=== PATIENT | female | born 1930 | race Caucasian/White ===

== ENCOUNTER 2018-01-08 18:15 | Inpatient (IN) | payer OTHER, BC ==
[~2018-01-08] VITALS: Ht 172.7 cm; Wt 75.0 kg
[~2018-01-08 18:15] MED LIST: ACCUPRIL40 MG PO; CALCIUM 500 +1 EACH PO; DIOVAN320 MG PO; ECOTRIN325 MG PO; EVISTA60 MG PO; GLUCOTROL10 MG PO; HYDRODIURIL,ORE25 MG PO; K-DUR20 MEQ PO; LANTUS100 UNIT/1 SQ; LOPRESSOR50 MG PO; NORVASC2.5 MG PO; PRILOSEC20 MG PO
[2018-01-08 18:30] LABS: BASOPHIL (%) 0.7 % (0-1); BASOPHIL COUNT 0.1 K/uL (0-0.1); EOSINOPHIL (%) 0.8 % (0-5); EOSINOPHIL COUNT 0.1 K/uL (0-0.3); HEMATOCRIT 44.8 % (36.0-46.0); HEMOGLOBIN 15.5 G/DL (11.9-15.5); IMMATURE GRANULOCYTE (%) 0.4 % (0.0-0.7); LYMPHOCYTE (%) 32.3 % (15-42); MCH 31.2 PG (29.0-34.0); MCHC 34.6 G/DL (30.0-36.0); MCV 90.1 FL (83-99); MONOCYTE (%) 8.4 % (3-12); NEUTROPHIL (%) 57.4 % (45-76); NEUTROPHIL COUNT 7.1 K/uL (1.8-6.4); PLATELET COUNT 263 K/uL (156-360); RBC DIS.WIDTH-CV 12.6 % (11.8-14.6); RBC DIS.WIDTH-SD 41.9 % (39-53); RED BLOOD COUNT 4.97 M/uL (3.80-5.20); WHITE BLOOD COUNT 12.3 K/uL (4.1-10.2)
[2018-01-08 18:36] LABS: INTER. NORMALIZED RATIO 0.9
[2018-01-08 18:39] LABS: PTT 28.3 SEC (25-37)
[2018-01-08 18:41] LABS: AMYLASE 49 IU/L (1-118)
[2018-01-08 18:42] LABS: CHLORIDE 101 mEq/L (99-109); POTASSIUM 3.6 mEq/L (3.7-5.4); SODIUM 137 mEq/L (136-147)
[2018-01-08 18:43] LABS: GLUCOSE 74 mg/dL (70-99)
[2018-01-08 18:46] LABS: SERUM ETHYL ALCOHOL < 10 mg/dL
[2018-01-08 18:47] LABS: CREATININE 0.7 mg/dL (0.6-1.3); GFR ESTIMATE (CALCULATED) > 59 mL/min/
[2018-01-08 18:48] LABS: UREA NITROGEN (BUN) 13 mg/dL (9-23)
[2018-01-08 18:50] LABS: LIPASE 17 U/L (1.0-51.0)
[2018-01-08 18:52] LABS: TROP-I INTERPRETATION NEGATIVE; TROPONIN-I < 0.01 ng/mL (0.0-0.30)
[2018-01-08 21:18] LABS: APPEARANCE SL.HAZY ((CLEAR)); BILIRUBIN NEGATIVE; BLOOD NEGATIVE; COLOR YELLOW ((YELLOW)); GLUCOSE (STRIP) 150; KETONES NEGATIVE; LEUKOCYTES SMALL; NITRITE NEGATIVE; PROTEIN (STRIP) NEGATIVE; SPECIFIC GRAVITY 1.011 (1.000-1.030); UROBILINOGEN 0.2 MG/DL (0.2-1.0)
[2018-01-08 21:20] LABS: BACTERIA 1+ /HPF; EPITHELIAL CELLS RARE /HPF; MUCUS TRACE /LPF; RED BLOOD CELLS 0-5 /HPF (0-5); UCUL ADDED? YES
[2018-01-08] MEDS ORDERED: HYDROCHLOROTHIA25 MG PO (21:24)
[2018-01-08] MEDS ORDERED: LANTUS 10100 UNITS/ SC (21:25)
[2018-01-08 21:26] LABS: AMPHETAMINE NEGATIVE (500 ng/mL); BARBITURATES NEGATIVE (200 ng/mL); BENZODIAZEPINES NEGATIVE (150 ng/mL); BUPRENORPHINE NEGATIVE (10 ng/mL); COCAINE NEGATIVE (150 ng/mL); METHADONE NEGATIVE (200 ng/mL); METHAMPHETAMINE NEGATIVE (500 ng/mL); OPIATES (MORPHINE) NEGATIVE (100 ng/mL); OXYCODONE NEGATIVE (100 ng/mL); PHENCYCLIDINE NEGATIVE (25 ng/mL); PROPOXYPHENE NEGATIVE (300 ng/mL); THC CANNABINOIDS NEGATIVE (50 ng/mL); TRICYCLIC ANTIDEPRESSANTS NEGATIVE (300 ng/mL)
[2018-01-08] MEDS ORDERED: CARTIA XT180 MG PO (21:28)
[2018-01-08] MEDS ORDERED: ATORVASTATIN CA20 MG PO (21:29)
[2018-01-08] MEDS ORDERED: LISINOPRIL40 MG PO (21:29)
[2018-01-08 22:09] LABS: HDL CHOLESTEROL 30 MG/DL (Desirable>=50); NON-HDL CHOLESTEROL 143 mg/dL (Desirable<160); TOTAL CHOLESTEROL 173 mg/dL (Desirable<200); TRIGLYCERIDES 406 MG/DL (Normal: <150)
[2018-01-09] VITALS (8 sets, daily range): BP systolic 135–199; BP diastolic 63–94
[2018-01-09 06:13] LABS: BASOPHIL (%) 0.4 % (0-1); BASOPHIL COUNT 0.1 K/uL (0-0.1); EOSINOPHIL (%) 0.4 % (0-5); EOSINOPHIL COUNT 0.1 K/uL (0-0.3); HEMATOCRIT 42.3 % (36.0-46.0); HEMOGLOBIN 14.7 G/DL (11.9-15.5); IMMATURE GRANULOCYTE (%) 0.3 % (0.0-0.7); LYMPHOCYTE COUNT 4.1 K/uL (1.0-2.8); MCH 31.1 PG (29.0-34.0); MCHC 34.8 G/DL (30.0-36.0); MCV 89.6 FL (83-99); MONOCYTE (%) 8.3 % (3-12); MONOCYTE COUNT 1.2 K/uL (0-0.8); NEUTROPHIL (%) 61.6 % (45-76); NEUTROPHIL COUNT 8.7 K/uL (1.8-6.4); PLATELET COUNT 228 K/uL (156-360); RBC DIS.WIDTH-CV 12.6 % (11.8-14.6); RBC DIS.WIDTH-SD 41.4 % (39-53); RED BLOOD COUNT 4.72 M/uL (3.80-5.20); WHITE BLOOD COUNT 14.1 K/uL (4.1-10.2)
[2018-01-09 06:31] LABS: CHLORIDE 101 MEQ/L (99-109); CREATININE 0.6 MG/DL (0.6-1.3); GFR ESTIMATE (CALCULATED) > 59 mL/min/; POTASSIUM 3.5 MEQ/L (3.7-5.4); SODIUM 135 MEQ/L (136-147); UREA NITROGEN (BUN) 12 mg/dL (9-23)
[2018-01-09 06:36] LABS: GLUCOSE 155 mg/dL (70-99)
[2018-01-10 06:18] LABS: BASOPHIL (%) 0.5 % (0-1); BASOPHIL COUNT 0.1 K/uL (0-0.1); EOSINOPHIL (%) 0.9 % (0-5); EOSINOPHIL COUNT 0.1 K/uL (0-0.3); HEMATOCRIT 42.9 % (36.0-46.0); HEMOGLOBIN 14.9 G/DL (11.9-15.5); IMMATURE GRANULOCYTE (%) 0.3 % (0.0-0.7); LYMPHOCYTE COUNT 4.2 K/uL (1.0-2.8); MCH 31.5 PG (29.0-34.0); MCHC 34.7 G/DL (30.0-36.0); MCV 90.7 FL (83-99); MONOCYTE (%) 9.6 % (3-12); MONOCYTE COUNT 1.1 K/uL (0-0.8); NEUTROPHIL (%) 52.7 % (45-76); NEUTROPHIL COUNT 6.1 K/uL (1.8-6.4); PLATELET COUNT 224 K/uL (156-360); RBC DIS.WIDTH-CV 12.9 % (11.8-14.6); RBC DIS.WIDTH-SD 42.6 % (39-53); RED BLOOD COUNT 4.73 M/uL (3.80-5.20); WHITE BLOOD COUNT 11.5 K/uL (4.1-10.2)
[2018-01-10 06:43] LABS: CHLORIDE 102 MEQ/L (99-109); CREATININE 0.8 MG/DL (0.6-1.3); GFR ESTIMATE (CALCULATED) > 59 mL/min/; GLUCOSE 179 mg/dL (70-99); SODIUM 136 MEQ/L (136-147); UREA NITROGEN (BUN) 19 mg/dL (9-23)
[2018-01-10 08:01] VITALS: BP 193/91
[2018-01-10 11:09] LABS: HEMOGLOBIN A1c (GLYCOHEMOGLOB) 7.9 % (Below 5.7)
[2018-01-10 11:34] VITALS: BP 140/70
[2018-01-10] MEDS ORDERED: LOPRESSOR25 MG PO (14:12)
[2018-01-10] MEDS ORDERED: CEFTIN250 MG PO (14:20)
== END 2018-01-10 16:04 | disposition home health service (06) | DRG 948 ==
LOC: EME 18:15 → EDOF 20:28 → ENRESERV 20:30 → 5WEST 21:39
PROVIDERS: Emergency Medicine; Hospitalist; Internal Medicine
DX: R41.82 Altered mental status, unspecified (principal); E11.649 Type 2 diabetes mellitus with hypoglycemia without coma; R27.0 Ataxia, unspecified; R47.1 Dysarthria and anarthria; N39.0 Urinary tract infection, site not specified; E86.0 Dehydration; E87.6 Hypokalemia; R00.1 Bradycardia, unspecified; T46.1X5A Adverse effect of calcium-channel blockers, initial encounter; I16.1 Hypertensive emergency; I10 Essential (primary) hypertension; K21.9 Gastro-esophageal reflux disease without esophagitis; E78.5 Hyperlipidemia, unspecified; I25.10 Atherosclerotic heart disease of native coronary artery without angina pectoris; Z79.82 Long term (current) use of aspirin; Z86.73 Personal history of transient ischemic attack (TIA), and cerebral infarction without residual deficits; Z87.891 Personal history of nicotine dependence; Z95.5 Presence of coronary angioplasty implant and graft; Z79.4 Long term (current) use of insulin
CPT/HCPCS: 70450; 70551; 71045; 80048; 80061; 81003; 82150; 82607; 82948; 83036; 83690; 84484; 85025; 85610; 85730; 86850; 86900; 86901; 87077; 87086; 87186; 93005; 93306; 93880; 99281; 99285; G0378; G0480; G8978 GP CI; G8979 GP CH; J0360; J0696; J1885; J7030